=== PATIENT | male | born 1995 | race African-American/Black ===

== ENCOUNTER 2022-12-27 18:02 | Emergency (ER) | payer MEDICAID ==
[~2022-12-27] VITALS: Ht 177.8 cm; Wt 113.4 kg
[2022-12-27 18:37] VITALS: BP 130/70; TEMP 98.4
[2022-12-27] MEDS ORDERED: BACI3.5O23 EXT (19:24)
[2022-12-27 19:27] VITALS: O2SAT 97
== END 2022-12-27 19:28 | disposition home or self-care (01) ==
LOC: ER 18:16
DX: R21 Rash and other nonspecific skin eruption (principal)